=== PATIENT | male | born 1965 | race African-American/Black ===

== ENCOUNTER 2017-01-17 19:13 | Emergency (ER) | payer BC ==
[2017-01-17] MEDS ORDERED: TETRACAINE HCL 150 DROP BTL ONE (19:33)
--- OUTSIDE RECORDS SUMMARY | 2017-01-17 20:13 | XMS REPORT | Continuity of Care Document ---
:1965 Author Organization [facility] ([facility]) Address [address] [place] [address] Phone [phone] Care Team Providers Name Role Phone Provider, No-Primary Care Primary Care Provider Unavailable Source Comments This disclosure is being made pursuant to the Care Everywhere program, applicable federal and state laws, and may not contain all informaitonavailable regarding this patient.[facility] ([facility]) Active Allergies and Adverse Reactions Allergen Noted Date Severity Reactions Comments Penicillins Respiratory increases BP, throat Distress,Angioedema swelling Wheat 10/29/2016 Urticaria (Hives) Current Medications Prescription Sig. Disp. Refills Start Date End Date Status finasteride 5 mg Take 5 mg by mouth Active tablet daily. pyridostigmine 60 mg Take 1.5 tablet by 02/07/2016 Active tablet oral route every 4 hours while awake lisinopril 2.5 mg Take 2.5 mg by Active tablet mouth daily. metFORMIN 500 mg XR Take 1 tablet daily 10/29/2016 Active tablet for 1 week then increase to 2 tablets daily. SUPPLY insulin Use to inject 100 Syringe 5 11/06/2016 Active syringe w/ needle subcutaneously 4 U-100 0.5 mL 31 g x times daily. 01/08" gabapentin 300 mg Take 1 capsule (300 90 capsule 3 11/06/2016 Active capsule mg total) by mouth 3 times daily. insulin detemir Inject 22 Units 10 mL 5 11/06/2016 Active (LEVEMIR) 100 subcutaneously at unit/mL injection bedtime. vial insulin aspart Inject 26 Units 20 mL 5 11/06/2016 Active (NovoLOG) 100 subcutaneously 3 unit/mL injection times daily with vial meals AND 2-10 Units per sliding scale 3 times a day with meals Active Problems Patient Care Coordination Note Dianelys Pereira, , . This agency provides services to this patient. 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 Follow-up Call 11/06/2016 Pharmacy Visit 11/06/2016 Surgery Radiology Aiden Domínguez IR TEMP CATH C, PA-C REMOVAL 11/05/2016 [facility] Pathology [facility] [place], Dx: Myasthenia Encounter Marisel Moore MD gravis (Primary Dx) 11/04/2016 Ophth Exam Ophthalmology - Royal Galeana MD 11/02/2016 [facility] Pathology Deion Escobedo MD Dx: Myasthenia Encounter gravis (Primary Dx) 10/31/2016 [facility] Pathology Deion Escobedo MD Dx: Myasthenia Encounter exacerbation (Primary Dx) 10/30/2016 - [facility] General Care Aline Ugarte, Dx: Myasthenia 11/06/2016 Encounter Inpatient - Adult gravjustina (Primary Dx) Goran Zarate MD Samaniego, Edgar A, MD Kamholz, John, MD Gutmann, Ludwig, MD 10/30/2016 Surgery Radiology Oscar Christensen MD Placement 10/29/2016 - Hospital Internal Medicine - [facility], Dx: Myasthenia 10/30/2016 Encounter Specialty MD Lei gravis (Primary Dx) Antonio Starr MD Spragg, Matthew T, DO Laroia, Sandeep T, MD Social History Tobacco Use Types Packs/Day Years Used Date Never Smoker Smokeless Tobacco: Never Used Alcohol Use Drinks/Week oz/Week Comments No Last Filed Vital Signs Vital Sign Reading Time Taken Blood Pressure 87/44 11/06/2016 7:54 AM CDT Pulse 80 11/06/2016 7:54 AM CDT Temperature 36.7 C (98.1 F) 11/06/2016 7:54 AM CDT Respiratory Rate 18 11/05/2016 7:36 AM CDT Height 1.829 m (6' 0.01") 10/30/2016 4:45 PM EXPRESS CLERK Weight 92.987 kg (205 lb) 10/30/2016 4:45 PM EXPRESS CLERK Body Mass Index 27.8 10/30/2016 4:45 PM EXPRESS CLERK Oxygen Saturation 93% 11/06/2016 7:54 AM CDT Plan of Care Health Maintenance Due Date Last Done Comments Hepatitis B Vaccine (1 of 3 - Primary Series) 1965 Tdap Vaccine 1977 DIABETIC: Cholesterol 1984 Diabetic: Hdl 1984 DIABETIC: Hemoglobin A1C 1984 Diabetic: Ldl 1984 DIABETIC: Microalbumin 1984 DIABETIC: Triglycerides 1984 MMR Vaccine 1984 Td Vaccine 1984 Pneumococcal Vaccine (1 of 1 - PPSV23) 1985 Colonoscopy 09/09/2016 Prostate Cancer Screening 2016 DIABETIC: Foot Exam 11/05/2016 DIABETIC: Retinal Eye Exam 11/05/2016 Influenza Vaccine: Seasonal (Season Ended) 2017 Procedures from Last 3 Months Procedure Name Priority Date/Time Associated Diagnosis Comments PLASMA EXCHANGE, Routine 11/05/2016 12:20 Myasthenia gravis Results for this THERAPEUTIC PM CDT procedure are in the results section. PLASMA EXCHANGE, Routine 11/02/2016 1:43 Myasthenia gravis Results for this THERAPEUTIC PM EXPRESS CLERK procedure are in the results section. PLASMA EXCHANGE, Routine 10/31/2016 3:12 Myasthenia Results for this THERAPEUTIC PM EXPRESS CLERK exacerbation procedure are in the results section. Results from Last 3 Months IR TEMP CATH REMOVAL (11/06/2016 1:33 PM)BLOOD GLUCOSE, BEDSIDE (11/06/2016 11: 45 AM)Only the most recent of33 resultswithin the time period is included. Component Value Range Glucose, Accu-Chek 353(H) 65-99 mg/dL Specimen Blood, capillary PLASMA EXCHANGE, THERAPEUTIC (11/05/2016 12:20 PM) Whit Gutierrez RN 11/05/2016 12:20 PM Therapeutic Plasma Exchange Procedure Note Procedure Date: 11/05/2016 Medications:Medications Given:Heparin Flush and Tums. Education:Procedure explained including clinical indications, course of treatment, and potential side effects. Consent Obtained:Consent obtained on 10-31-2016.Consent verified 11-05-2016. Line Placement Verification: Line Placement Verified By:Whit Wasserman RN. Line Placed: 10-30-2016 Description of Operation/Procedure: Time Out Performed:Yes,2 forms of patient identification verified. Equipment:Optia #1 Fluid Warmer:#7 Anticoagulant:ACD-A Whole blood anticoagulant ratio:1:10 Fluid Balance:100% Time Started:953 Time Stopped:113 Run Time: 95 min. Pre HCT:43% Estimated Blood Volume:5842 ml Estimated Plasma Volume:3330 ml Volume of WB Processed:8715 ml Volume Plasma Removed:3557 ml Type and Volume of Fluids Replaced:Albumin:2000 ml and Normal Saline:1250 ml Plasma Volume(s) Exchanged: 1.1 Volume ACD-A used:871 ml Volume ACD-A to Patient:177 ml Volume of Normal Saline rinse/bolus:165 ml Fluid balance: +16 ml / 100% Critical Materials Lot #s: Kit:Lot #:[id number] Exp: 10/14 Warmer tubing:Lot #:[id number], Exp:12/12 ACD-A:Lot #:[id number], Exp:06/12;Lot #:[id number], Exp: 06/2018 Heparin Flush:Lot #:[id number], Exp:02/10 Normal Saline Flush:Lot #:[id number], Exp:06/13x 2 0.9% Normal Saline 500 ml:Lot #:[id number], Exp:12/11 0.9% Normal Saline 1000 ml:Lot #:[id number], Exp:04/12 5% Albumin 500 ml:Lot #:[id number], Exp:04/13x 4 MicroClave Neutral Connector Cap: Lot #:[id number], Exp: x 2 Faustin:ACD-A=Anticoagulant Citrate Dextrose Formula A Reactions:No. Discharge Instructions:Discharge instructions given to patient at completion of the procedure. Nursing Documentation:Patient arrived to [facility] via wheelchair from [facility] [place] Therapeutic Plasma Exchange Procedure # 3 today.Patient is alert and oriented x 3.Patient is pushed back to therapy area where he makes himself comfortable in bed.Patient given milk, string cheese, and TUMS at 0951 before procedure started per request.Patient has 12 F 15 cm [place] Slim-cath double-lumen hemodialysis catheter to right neck that will be used for procedure today.Dressing to hemodialysis catheter intact, but slightly peeling up at bottom edge with no drainage present; site intact without redness or edema.Waste blood pulled easily from both lumens.Small sample drawn for spun hematocrit of 43%.Red lumen used for draw access for procedure and blue lumen attached to return line for procedure.Procedure initiated at 0954 at a whole blood flow rate (WBFR) of 75 ml/min. without alarms.0955 Dr. Marisel Stockton, Pathology Staff, Dr. Emmanuel Nelson, Pathology Fellow, Dr. Juve Whitman, Pathology Resident, and a medical student here to see patient.1000 increased WBFR to 80 ml/min., patient tolerating procedure well, sleeping intermittently through procedure.1014 increased WBFR to 85 ml/min.Removed plasma appears clear and dark yellow/eng yellow in color.1027 increased WBFR to 90 ml/min., patient tolerating procedure well, denies any numbness or tingling; patient resting with eyes closed intermittently during procedure.1038 increased WBFR to 100 ml/min per request by patient to increase rate of procedure, and patient's blood pressure is maintaining so far through procedure. Patient on phone off and on throughout procedure as well. Patient did not eat string cheese during procedure and only had a little of milk during procedure that was provided at start of procedure per patient request.1104 reinforced dressing with piece of tape across bottom of dressing where it is slightly peeling off and another piece of tape over top of dressing where lines come out of neck.Patient continues to tolerate procedure well, denies any numbness or tingling.Rinseback initiated at 1130, and procedure complete at 1134.Both lumens flushed and Heparin locked and capped per protocol.Patient denied wanting copy of discharge instructions, this nurse told patient to let nurse or staff know on 6JCE if there is any issues with his hemodialysis catheter or anything he believes associated with the procedure.This nurse followed patient as he ambulated to restroom.1144 patient then discharged via wheelchair feeling well with no complaints accompanied by patient escort services member, with a ticket to ride.Report called and given to patient's care nurse on Sigrid VALENCIA.Patient's next planned procedure is this coming November 07.Plasma and apheresis tubing discarded in biohazard container appropriately. Vitals: Patient Vitals for the past 24 hrs: BP Temp Temp src Pulse 11/05/16 1137 136/66 mmHg 36.8 C (98.2 F) Tympanic 87 11/05/16 1133 143/75 mmHg - - 91 11/05/16 1118 130/71 mmHg - - 99 11/05/16 1103 135/68 mmHg - - 82 11/05/16 1048 136/71 mmHg - - 84 11/05/16 1033 143/68 mmHg - - 80 11/05/16 1018 141/73 mmHg - - 79 11/05/16 1003 139/78 mmHg - - 80 11/05/16 0948 137/82 mmHg 36.1 C (97 F) Tympanic 81 Whit Wasserman RN [facility] HEMATOCRIT, POINT OF CARE (11/05/2016 9:54 AM)Only the most recent of2 resultswithin the time period is included. Component Value Range DBC HEMATOCRIT 43.0 40-52 % Specimen Blood, venous PLATELET COUNT (11/05/2016 7:25 AM) Component Value Range Platelet Count 176 150-400 K/MM3 Specimen Whole Blood CREATININE (11/05/2016 7:25 AM)Only the most recent of2 resultswithin the time period is included. Component Value Range Creatinine 0.7Comment: 0.6-1.2 mg/dL Creatinine switched to enzymatic method on 01/02/2011.GFR equation switched to IDMS-traceable MDRD equation on 01/02/2011. Calculated GFR values are not valid in clinical settings where serum creatinine is changing. Calculated GFR >90 >60 mL/min/1.73 m2 Specimen Blood PLASMA EXCHANGE, THERAPEUTIC (11/02/2016 1:43 PM) Ivory Peralta RN 11/02/20161:43 PM Therapeutic Plasma Exchange Procedure Note Procedure Date: 11/02/2016 Medications:Medications Given:Heparin Flush Education:Procedure explained including clinical indications, course of treatment, and potential side effects. Consent Obtained:Consent obtained on 10/31/2016.Consent verified. Description of Operation/Procedure: Time Out Performed:Yes,2 forms of patient identification verified Equipment:Optia #1 Fluid Warmer:#10 Anticoagulant:ACD-A Whole blood anticoagulant ratio:1:10 Fluid Balance:100% Time Started:1130 Time Stopped:1325 Pre HCT:45% Estimated Blood Volume:6503 ml Estimated Plasma Volume:2926 ml Volume of WB Processed:67842 ml Volume Plasma Removed:4446 ml Type and Volume of Fluids Replaced:Albumin:2000 ml and Normal Saline: 1250 ml Volume ACD-A used:1054 ml (309 ml to Pt.) Volume of Normal Saline rinse/bolus:167 ml Fluid balance: +19 ml Critical Materials Lot #s:Kit:Lot #:[id number] Exp:09/13 Warmer tubing:Lot #:[id number], Exp:12/12 ACD-A:Lot #:[id number], Exp:07/13 Heparin Flush:Lot #:[id number], Exp:02/10 Normal Saline Flush:Lot #:[id number], Exp:06/13 0.9% Normal Saline 500 ml:Lot #:[id number], Exp:12/11 0.9% Normal Saline 1000 ml:Lot #:[id number], Exp:04/12 5% Albumin 500 ml:Lot #:[id number], Exp:05/14 Reactions:No Discharge Instructions:Discharge instructions given to patient at completion of the procedure. Nursing Documentation:Pt. To [facility] for TPE #2 via wheelchair with escort feeling well. Pt. Had a double lumen hemodialysis catheter which was used for procedure. Dressing was dry and slightly loose with a small amount of dried drainage beneath. Dressing reinforced with tape. Both lumens of catheter expressed whole blood easily. Red lumen used for draw and blue lumen for return. Pt. Took TUMS and had milk before procedure began. 1130-Procedure began with a wbfr of 85 mls/minute and was increased to 100 mls/minute. Removed plasma was eng yellow in color and clear . Dr. Escobedo and pathology team came to see Pt. 1320-Procedure ended and rinseback completed. Lumens flushed and capped per protocol. Kit disposed of in biohazard waste. Pt. Left via wheelchair with escort feeling fine. He stated that taking the calcium rich food and medicine at the beginning of the procedure helped. He will have another procedure on Saturday. Faustin:ACD-A=Anticoagulant Citrate Dextrose Formula A Patient Vitals for the past 24 hrs: BP Temp Pulse 11/02/16 1325 117/73 mmHg 36.8 C (98.2 F) 95 11/02/16 1320 116/70 mmHg - 98 11/02/16 1305 128/81 mmHg - 97 11/02/16 1250 135/79 mmHg - 91 11/02/16 1235 127/75 mmHg - 93 11/02/16 1220 143/75 mmHg - 89 11/02/16 1205 143/73 mmHg - 88 11/02/16 1151 154/84 mmHg - 89 11/02/16 1135 156/83 mmHg - 87 11/02/16 1121 146/86 mmHg 36.5 C (97.7 F) 97 Ivory Holley RN CBC (COMPLETE BLOOD COUNT) (11/01/2016 7:36 AM) Component Value Range WBC Count 6.5 3.7-10.5 K/MM3 RBC Count 5.32 4.50-6.20 M/MM3 Hemoglobin 15.5 13.2-17.7 g/dL Hematocrit 45 40-52 % MCV (Mean Corpuscular Volume) 84 82-99 FL MCH (Mean Corpuscular Hemoglobin) 29 25-35 PG MCHC (Mean Corpuscular Hemoglobin Concentration) 35 32-36 % Platelet Count 173 150-400 K/MM3 MPV (Mean Platelet Volume) 10.2 9.4-12.3 FL RBC Dist Width-STD 39.0 35.1-43.9 FL RBC Distrib Width 12.8 9.0-14.5 % Nucleated RBC 0 /100 WBC Specimen Whole Blood PLASMA EXCHANGE, THERAPEUTIC (10/31/2016 3:12 PM) Huma Guzman RN 10/31/20163:12 PM Therapeutic Plasma Exchange Procedure Note Procedure Date: 10/31/2016 Medications:Medications Given:Heparin Flush Education:Procedure explained including clinical indications, course of treatment, and potential side effects. Consent Obtained:Consent obtained on 10/31/2017.Consent verified. Description of Operation/Procedure: Time Out Performed:Yes,2 forms of patient identification verified Equipment:Optia #3 Fluid Warmer:#5 Anticoagulant:ACD-A Whole blood anticoagulant ratio:1:10 Fluid Balance:100% Time Started:1005 Time Stopped:1205 Pre HCT:42% Estimated Blood Volume:5842 ml Estimated Plasma Volume:3388 ml Volume of WB Processed:66976 ml Volume Plasma Removed:4599 ml Type and Volume of Fluids Replaced:Albumin:2500 ml and Normal Saline:1000 ml Volume ACD-A used:1083 ml (AC to [id number])AC in remove Bag 735 Volume of Normal Saline rinse/bolus:129 ml Critical Materials Lot #s:Kit:Lot #:[id number]: 09/26/2018 Warmer tubing:Lot #:[id number], Exp:10/2018 ACD-A:Lot #:[id number], Exp:05/2018 Heparin Flush:Lot #:[id number], Exp:01/2018 Normal Saline Flush:Lot #:[id number], Exp:07/25/2019 0.9% Normal Saline 1000 ml:Lot #:[id number], Exp:03/2018 X 2 5% Albumin 500 ml:Lot #:[id number], Exp:04/18/2019 Reactions:Yes, See nursing documentation Discharge Instructions:Discharge instructions given to patient at completion of the procedure. Nursing Documentation:Patient arrived to the [facility] via wheelchair accompanied by Escort Services for PLEX #1.Alert, oriented and pleasant although reports he did not sleep well last night and had had a headache since his line was placed yesterday. Taken to therapy procedure room and made comfortable in therapy bed - warm blankets provided. Confirms allergies to PCN and wheat.Procedure explained and consent signed without any questions.Patient reports having nearly 100 PLEX in [place]. Dressing over Right IJ hemodialysis catheter has scant amount of dried serosanguinous drainage - both lumens express waste blood easily and scant amount obtained for spun hematocrit of 42%. 1005 - Procedure started with draw to red and return to blue - WBFR at 100 mls/min and inlet AC:WB ratio 1:10.Dr. Debra Escobedo, Pathology Staff and Transfusion Medicine Team met with patient. Patient sleeps on and off throughout procedure.Removed plasma is cloudy susie.1135 - Patient awakens and feels a little nauseated.Procedure slowed to 50 mls/min.Requests animal cookies to eat and given milk to drink.Refused Tums first time offered.Dr. Alarcon notified about patient condition.Requests to use commode.Up at side of bed on commode to void.Returns to bed.Dr. Alarcon here to see patient and insists he takes two tums.Tums provided see MAR for details.1205 - Procedure complete and rinse back started - draw line flushed and capped per protocol. Rinse back complete and return line flushed and capped per protocol.Patient states he is feeling a little better and requests to go to restroom.Up to ambulate to rest room.Returns to procedure room and gets into wheelchair and states he feels much better.Taken to bilingual receptionist area to await Escort Services.Patient states he feels very hot like he is having a hot flash.Given cold water to drink - taken back to procedure room and assisted into bed.Dr. Debra Escobedo paged to come to procedure room.After ten minutes patient once again is feeling better and states he is ready to get into wheelchair to go back to his room.Taken by this nurse and Ana Holley RN to 6JCE to his room and assisted into bed.Report given to primary care nurse.Kit and removed plasma disposed of in bio hazard waste. Patient Vitals for the past 24 hrs: BP Temp Temp src Pulse 10/31/16 1230 116/82 mmHg 36 C (96.8 F) Tympanic 60 10/31/16 1215 (!) 139/98 mmHg - - 91 10/31/16 1200 108/56 mmHg - - 74 10/31/16 1145 131/85 mmHg - - 88 10/31/16 1130 118/58 mmHg - - 83 10/31/16 1115 115/65 mmHg - - 84 10/31/16 1100 120/65 mmHg - - 81 10/31/16 1045 157/73 mmHg - - 78 10/31/16 1030 140/70 mmHg - - 77 10/31/16 1015 139/74 mmHg - - 74 10/31/16 1000 138/76 mmHg 36.4 C (97.5 F) Tympanic 77 Faustin:ACD-A=Anticoagulant Citrate Dextrose Formula A Huma Sawin RN IR TEMP CATH PLACEMENT (10/30/2016 1:08 PM) Narrative PROCEDURE: Right internal jugular temporary catheter placement. CLINICAL INDICATIONS:Myasthenia gravis ACCESS:Right neck CONTRAST: 10 ml Isovue 370 ANESTHESIA:1% Local lidocaine MEDS:4 mg Versed IV, 100 mcg Fentanyl IV,, 4 ml of 1000 units/ml Heparin IV PHYSICIANS: Dr. Christensen STOCK BUYER: Dr. Prater PULSES:Intact bilaterally COMPLICATIONS:None immediate BLOOD LOSS:Minimal FLUORO TIME:2.9 min FLUORO DOSE:51 mGy SEDATION START TIME: 10/30/2016 1220 SEDATION STOP TIME: 10/30/2016 1255 PROCEDURE: Informed consent was obtained after a detailed discussion outlining the risks, benefits, and alternatives to the procedure and after all of the patient's questions were answered. The patient was brought to the interventional suite and placed in the supine position. A formal timeout was performed. The right neck was prepped and draped in usual sterile fashion. The right internal jugular vein was identified using ultrasound. Overlying skin was anesthetized using 1% lidocaine. Access was achieved in the right internal jugular vein with a 21-gauge micropuncture needle under ultrasound guidance. A nitinol wire was then inserted through the needle under fluoroscopic guidance.A 5 mm transverse juan diego was placed in the skin.The micropuncture needle was removed and access was secured using a 4 [place] transitional sheath. Subsequently the nitinol wire was removed and a Bentson guidewire was introduced through this sheath and was placed across the right atrium into the IVC. 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 Catheter ports were flushed with saline and primed with 2 ml of 100 units/ml heparin.Catheter was secured to the skin using 2-0 Prolene sutures. Procedure done under fluoroscopic guidance. The patient tolerated the procedure well. There were no complications. Dr. Christensen performed the entire procedure. Impression : 1. Successful placement of a 12 F 15 cm [place] Slim-cath temporary catheter through right internal jugular vein access. Tip of the catheter is located at the junction of the SVC and right atrium. 2. Catheter ports flushed with saline and primed with 2 ml of 100 units/ml heparin. Catheter is ready for use. 3. 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 Procedure Note Kane, Incoming Imaging Results - SatOct 31, 2016 8:14 AM EXPRESS CLERK PROCEDURE: Right internal jugular temporary catheter placement. CLINICAL INDICATIONS: Myasthenia gravis ACCESS: Right neck CONTRAST: 10 ml Isovue 370 ANESTHESIA: 1% Local lidocaine MEDS: 4 mg Versed IV, 100 mcg Fentanyl IV, , 4 ml of 1000 units/ml Heparin IV PHYSICIANS: Dr. Christensen STOCK BUYER: Dr. Prater PULSES: Intact bilaterally COMPLICATIONS: None immediate BLOOD LOSS: Minimal FLUORO TIME: 2.9 min FLUORO DOSE: 51 mGy SEDATION START TIME: 10/30/2016 1220 SEDATION STOP TIME: 10/30/2016 1255 PROCEDURE: Informed consent was obtained after a detailed discussion outlining the risks, benefits, and alternatives to the procedure and after all of the patient's questions were answered. The patient was brought to the interventional suite and placed in the supine position. A formal timeout was performed. The right neck was prepped and draped in usual sterile fashion. The right internal jugular vein was identified using ultrasound. Overlying skin was anesthetized using 1% lidocaine. Access was achieved in the right internal jugular vein with a 21-gauge micropuncture needle under ultrasound guidance. A nitinol wire was then inserted through the needle under fluoroscopic guidance. A 5 mm transverse juan diego was placed in the skin. The micropuncture needle was removed and access was secured using a 4 [place] transitional sheath. Subsequently the nitinol wire was removed and a Bentson guidewire was introduced through this sheath and was placed across the right atrium into the IVC. 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 A 12F 15 cm [place] Slim-cath was then inserted over the Bentson wire. The catheter tip was checked to be in adequate position on fluoroscopy. Catheter ports were flushed with saline and primed with 2 ml of 100 units/ml heparin. Catheter was secured to the skin using 2-0 Prolene sutures. Procedure done under fluoroscopic guidance. The patient tolerated the procedure well. There were no complications. Dr. Christensen performed the entire procedure. Impression : 1. Successful placement of a 12 F 15 cm [place] Slim-cath temporary catheter through right internal jugular vein access. Tip of the catheter is located at the junction of the SVC and right atrium. 2. Catheter ports flushed with saline and primed with 2 ml of 100 units/ml heparin. Catheter is ready for use. 3. 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 PTT (PARTIAL THROMBOPLASTIN TIME) (10/30/2016 7:47 AM) Component Value Range PTT 25 22-31 secs Specimen Blood PT/INR (PROTHROMBIN TIME/INR) VENOUS (10/30/2016 7:47 AM) Component Value Range PT (Prothrombin Time) 11 9-12 secs INR 1.0 <4.0 Specimen Blood MICROSCOPIC URINALYSIS (10/29/2016 9:44 PM) Component Value Range White Blood Cells, Urine <1 0-5 /HPF Red Blood Cells, Urine <1 0-2 /HPF Specimen Urine URINALYSIS WITH REFLEX CULTURE (10/29/2016 9:44 PM) Component Value Range Color, Urine Yellow Straw, Pale Yellow, Yellow, Clear, None Clarity, Urine Clear Clear pH, Urine 7.0 <9.0 Spec Gaylord, Urine 1.025 1.000-1.030 Glucose, Urine 3+(A) Negative Blood, Urine Negative Negative Ketones, Urine 1+(A) Negative Protein, Urine Negative Negative Urobilinogen, Urine 2+(A) Normal Bilirubin, Urine Negative Negative Leukocyte Esterase, Urine Negative Negative Nitrite, Urine Negative Negative Specimen Urine URINALYSIS WITH REFLEXED CULTURE AND MICROSCOPIC EXAM (10/29/2016 9:44 PM) Specimen Culture - Urine, Midstream clean catch Narrative The following orders were created for panel order URINALYSIS WITH REFLEXED CULTURE AND MICROSCOPIC EXAM. Procedure Abnormality Status --------- ------ URINALYSIS WITH REFLEX C...[[id number]]AbnormalFinal result MICROSCOPIC URINALYSIS[[id number]] Normal Final result URINE CULTURE, REFLEXED[[id number]] Please view results for these tests on the individual orders. CHEST- PA& LATERAL (10/29/2016 9:00 PM) Impressions Impression: Stable exam. No acute findings. Narrative Procedure: CHEST- PA & LATERAL Clinical Indication: Myasthenia gravis, shortness of breath Technique: PA and lateral chest radiograph Comparison: 12/01/2015, 09/01/2011, 06/03/2011 Findings: The cardiomediastinal silhouette and pulmonary vasculature are unremarkable. Faint opacity in the right paracardiac region is related to overlapping vascular shadows and was seen on prior radiographs. No suspicious infiltrate, lobar consolidation or collapse. Postsurgical changes in the mediastinum and sternotomy sutures appear unchanged. No pleural effusion or pneumothorax. Redemonstration of partly visualized fusion hardware in the lowermost cervical spine/upper thoracic spine and cholecystectomy clips in the right upper abdomen. The exam is otherwise stable. Procedure Note Kane, Incoming Imaging Results - SatOct 29, 2016 10:25 PM EXPRESS CLERK Procedure: CHEST- PA & LATERAL Clinical Indication: Myasthenia gravis, shortness of breath Technique: PA and lateral chest radiograph Comparison: 12/01/2015, 09/01/2011, 06/03/2011 Findings: The cardiomediastinal silhouette and pulmonary vasculature are unremarkable. Faint opacity in the right paracardiac region is related to overlapping vascular shadows and was seen on prior radiographs. No suspicious infiltrate, lobar consolidation or collapse. Postsurgical changes in the mediastinum and sternotomy sutures appear unchanged. No pleural effusion or pneumothorax. Redemonstration of partly visualized fusion hardware in the lowermost cervical spine/upper thoracic spine and cholecystectomy clips in the right upper abdomen. The exam is otherwise stable. IMPRESSION Impression: Stable exam. No acute findings. DIFFERENTIAL (10/29/2016 8:54 PM) Component Value Range % Neutrophils-Auto Diff 59.9 % Neutrophils-Auto Diff 2820 6353-3521 /MM3 % Lymphocytes-Auto Diff 29.9 % Lymphocytes-Auto Diff 0964 446-2853 /MM3 % Monocytes-Auto Diff 8.1 % Monocytes-Auto Diff 380 130-860 /MM3 % Eosinophils-Auto Diff 1.5 % Eosinophils-Auto Diff 70 40-390 /MM3 % Basophils 0.4 % Basophils-Auto Diff 20 10-136 /MM3 % Immature Granulocytes-Auto Diff 0.2 % Immature Granulocytes-Auto Diff 10 /MM3 Specimen Whole Blood CBC (COMPLETE BLOOD COUNT) (10/29/2016 8:54 PM) Component Value Range WBC Count 4.7 3.7-10.5 K/MM3 RBC Count 4.64 4.50-6.20 M/MM3 Hemoglobin 13.8 13.2-17.7 g/dL Hematocrit 39(L) 40-52 % MCV (Mean Corpuscular Volume) 84 82-99 FL MCH (Mean Corpuscular Hemoglobin) 30 25-35 PG MCHC (Mean Corpuscular Hemoglobin Concentration) 35 32-36 % Platelet Count 182 150-400 K/MM3 MPV (Mean Platelet Volume) 10.6 9.4-12.3 FL RBC Dist Width-STD 39.2 35.1-43.9 FL RBC Distrib Width 12.9 9.0-14.5 % Nucleated RBC 0 /100 WBC Specimen Whole Blood POTASSIUM ([facility]) (10/29/2016 8:54 PM) Component Value Range Potassium, Whole Blood 4.3Comment: 3.5-5.0 mEq/L Sample run on whole blood.Hemolysis is not measured. Specimen Whole Blood B-HYDROXYBUTYRATE (10/29/2016 8:54 PM) Component Value Range Beta-Hydroxybutyrate 0.3 0.0-0.3 mEq/L Specimen Blood LACTIC ACID, WHOLE BLOOD ([facility]) (10/29/2016 8:54 PM) Component Value Range Lactic Acid, Whole Blood 2.0Comment: 0.5-2.0 mEq/L Glycolate, the principle toxic metabolite of ethylene glycol, can cause artifactual elevation of measured lactate. Specimen Whole Blood VENOUS BLOOD GAS ([facility]) (10/29/2016 8:54 PM) Component Value Range pH, Venous 7.44(H) 7.33-7.43 pCO2, Venous 43 37-50 torr pO2, Venous 52(H) 37-47 torr Base Excess, Venous 6(H) -2-2 mEq/L Bicarbonate, Venous 30(H) 22-26 mEq/L Total CO2, Venous 31 24-32 mEq/L Temperature, Venous 37.0 Degrees C Specimen Whole Blood TROPONIN T (10/29/2016 8:54 PM) Component Value Range Troponin-T <0.03 <=0.10 ng/mL Specimen Blood COMPREHENSIVE METABOLIC PANEL (CMP) (10/29/2016 8:54 PM) Component Value Range Sodium 137 135-145 mEq/L Chloride 98 95-107 mEq/L CO2 26 22-29 mEq/L Anion Gap 13 8-18 mEq/L BUN 10 10-20 mg/dL Creatinine 0.7Comment: 0.6-1.2 mg/dL Creatinine switched to enzymatic method on 01/02/2011.GFR equation switched to IDMS-traceable MDRD equation on 01/02/2011. Calculated GFR values are not valid in clinical settings where serum creatinine is changing. Glucose 238(H)Comment: 65-99 mg/dL The Expert Committee on the Diagnosis and Classification of Diabetes has defined impaired fasting glucose as greater than or equal to 100 mg/dL but less than 126 mg/dL.(Diabetes Care 28 (Suppl 1)S41,2005) Calcium 8.9 8.5-10.5 mg/dL Total Protein 6.9 6.0-8.0 g/dL Albumin 3.8 3.4-4.8 g/dL ALP 111 40-129 U/L Bilirubin Total 0.5 <=1.2 mg/dL Potassium Hemolyzed(A)Comment: mEq/L For inpatient phlebotomy redraws, please contact pager #[phone] between the hours of 05:00 to 13:00. AST Hemolyzed(A)Comment: U/L For inpatient phlebotomy redraws, please contact pager #[phone] between the hours of 05:00 to 13:00. ALT Hemolyzed(A)Comment: U/L For inpatient phlebotomy redraws, please contact pager #[phone] between the hours of 05:00 to 13:00. Calculated GFR >90 >60 mL/min/1.73 m2 Specimen Blood CBC WITH DIFFERENTIAL (10/29/2016 8:54 PM) Specimen Whole Blood Narrative The following orders were created for panel order CBC WITH DIFFERENTIAL. Procedure Abnormality Status --------- ------ CBC (COMPLETE BLOOD COUNT)[[id number]] AbnormalFinal result DIFFERENTIAL[[id number]] Final result Please view results for these tests on the individual orders. ECG - EKG 12 LEAD (10/29/2016 8:45 PM) Component Value Range ECG SEVERITY - NORMAL ECG - VENT. RATE 82 bpm RR 732 ms P-R INTERVAL 168 ms QRSD INTERVAL 94 ms QT INTERVAL 392 ms QTC INTERVAL 458 ms P AXIS 61 degrees QRS AXIS 41 degrees T WAVE AXIS 46 degrees REPORT SINUS RHYTHM [Remains] NO SIGNIFICANT CHANGE Interpreting Physician: Hunter Casillas MD
[2017-01-17 20:53] VITALS: BP 145/94
--- NOTE | 2017-01-17 21:03 | ERNOTE ---
ENT HPI Presenting Symptoms: other - right eye drooping Time Seen by Provider: 01/17/17 20:06 Source: patient Exam Limitations: no limitations - Immun/Allergies/Home Medications Immunizations: IMMUNIZATION HX Immunizations Up to Date Yes History of Influenza Vaccine No Hx Pneumococcal Vaccination No Allergies/Adverse Reactions: Allergies Allergy/AdvReac Type Severity Reaction Status Date / Time Penicillins Allergy Verified 06/03/16 19:04 Home Medications: HOME MEDICATIONS Insul NPH Hu Rec/Ins Rg Hu Rec [Novolin 70/30 100U/ml] 25 units SQ DAILY [Last Taken 11/30/15] Insul NPH Hu Rec/Ins Rg Hu Rec [Novolin 70/30 100U/ml] 28 units SQ DAILY [Last Taken 11/30/15] Pyridostigmine [place] [Mestinon] 90 mg PO TID 11/30/15 [Last Taken 11/30/15] Insulin Lispro [Humalog] 100 unit SQ AC #1 insuln.pen 06/03/16 [Last Taken Unknown] - History of Present Illness Narrative: Pt states he has had increasing weakness of his right eyelid. He has had some drainage from his eye but not severe. This morning his left eye was mattered when he woke up Severity: Present: moderate ENT Location: Present: eye (R) Prearrival Treatment: Present: over the counter meds - for cold symptoms Associated Symptoms - ENT: Reports: nasal congestion/drainage - mild Review of Systems - Review of Systems Constitutional: Present: recent illness - mild. Absent: fever, chills, fatigue EYE: Present: see HPI, eye discharge - minimal. Absent: eye pain, blurred vision, double vision ENT: Present: nose congestion. Absent: sore throat Respiratory: Absent: shortness of breath, cough Cardiology: Absent: chest pain, palpitations Gastrointestinal/Abdominal: Absent: nausea, abdominal pain Genitourinary: Present: no symptoms reported Musculoskeletal: Absent: muscle pain, muscle stiffness, other - denies any muscular symptoms associated with his myesthenia gravis. Skin: Absent: rash Neurological: Present: headache - upon awakening this past week. Absent: numbness, tingling Endocrine: Present: no symptoms reported Hematologic/Lymphatic: Present: no symptoms reported Psych: Present: no symptoms reported - Patient's Past Medical History Patient History - Medical: Diabetes Type 2 Insulin Dependent, Other - Myesthenia gravis Patient History - Cardiac/Respiratory: No pertinent hx Patient History - Cancer: Lung Patient History - Surgical Procedures: Appendectomy, Back Surgery, T & A, Other Patient History - Other: None - Family History Father Family History - Medical: janeen Family History - Medical: Diabetes Type 2 - Social History Living Situations: home Abuse History: No History of abuse Psych History: No pertinent hx Smoking Status: Never smoker Alcohol Use: none Drug Use: none - Immunizations Immunizations Up to Date: Yes Hx Pneumococcal Vaccination: No History of Influenza Vaccine: No Physical Exam - Physical Exam General Appearance: Present: wd/wn, alert, no apparent distress Eye Exam: PERRL: bilateral, EOMI: bilateral, Sclera injection: bilateral - minimal bilateral, no inflamation, no drainage or crusting of the lashed, Other : right - Drooping of right lid to open only 1-2 mm except with maximal effort he get lid half way open Ears, Nose, Throat: Present: normal ENT inspection. Absent: nasal congestion Neck: Present: normal inspection, nontender, supple Respiratory: Present: no respiratory distress, no accessory muscle use Extremity Exam: Present: normal inspection, normal range of motion Neurological Exam: Present: alert, oriented, normal mood/affect, no motor/ sensory deficits - Has full strength of all extremities. Skin Exam: Present: normal color, warm/dry ED Progress - Vital Signs Vital Signs: Vital Signs 01/17/17 19:19 Temperature 36.8 C Pulse Rate 104 H Respiratory 18 Rate Blood Pressure 130/82 O2 Sat by Pulse 99 Oximetry - CT/Ultrasound CT/Ultrasound Narrative: CT head: no acute intracranial process - Progress/Reassessment Chief Complaint: Eye Injury/Trauma Progress Note-Subjective: 01/17/17 21:34 Called for neurology consultation at [facility]. Spoke with Dr. Gusman. He feels that it is probably not related to his myasthenia gravis but that other dx would require MRI or other testing that we do not have here. He stated that as long as the patient isn't having respiratory difficulty suggesting a full MG exacerbation then I can send him home and they will call him tomorrow to begin further workup on his ptosis. 01/17/17 21:[address] with patient and that I talked to the [facility], he was upset that I didn't find an alternate diagnosis. I apologized that there was no other apparent diagnosis and I did get the ball rolling with the [place]. He was more appreciative Departure Clinical Impression: Ptosis Qualifiers: Laterality: right Qualified Code(s): H02.401 - Unspecified ptosis of right eyelid - Departure Disposition: Home Follow Up Needed Condition: Good Additional Instructions: [facility] will call you tomorrow to begin further workup for your eye. Return to ER as needed.
== END 2017-01-17 21:51 | disposition home or self-care (01) ==
LOC: ER 19:13
DX: H02.401 Unspecified ptosis of right eyelid (principal); E11.9 Type 2 diabetes mellitus without complications; Z79.4 Long term (current) use of insulin; Z85.118 Personal history of other malignant neoplasm of bronchus and lung; G70.9 Myoneural disorder, unspecified

== ENCOUNTER 2017-01-20 12:46 | Emergency (ER) | payer BC ==
[2017-01-20] MEDS ORDERED: HYDROCORTISONE SOD SUCCINATE 50 MG/ML VIAL IV ONE (13:01)
[2017-01-20] MEDS ORDERED: HYDROCORTISONE SOD SUCCINATE 50 MG/ML VIAL ONE (13:04)
--- OUTSIDE RECORDS SUMMARY | 2017-01-20 13:11 | XMS REPORT | Continuity of Care Document ---
:1965 Author Organization [facility] ([facility]) Address [address] [place] [address] Phone [phone] Care Team Providers Name Role Phone Provider, No-Primary Care Primary Care Provider Unavailable Source Comments This disclosure is being made pursuant to the Care Everywhere program, applicable federal and state laws, and may not contain all informaitonavailable regarding this patient.[facility] ([facility]) Active Allergies and Adverse Reactions Allergen [...] Recent Encounters Date Type Specialty Providers Description 01/17/2017 Telephone Neurology Naseem, Chief Comp: MD Andrés Consultation 11/08/2016 Nurse Triage General Care Stacey Lombardi Chief Comp: IP 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, 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 Follow-up Call 11/06/2016 Pharmacy Visit 11/06/2016 Surgery Radiology Aiden Domínguez IR TEMJordan CATH C, PA-C REMOVAL 11/05/2016 [facility] Pathology Mahin, Dx: Myasthenia Encounter Marisel Moore MD gravjustina (Primary Dx) 11/04/2016 Ophth Exam Ophthalmology - [facility] MD Teresa 11/02/2016 [facility] Pathology Deion Escobedo MD Dx: Myasthenia Encounter gravis (Primary Dx) 10/31/2016 Hospital Pathology Deion Escobedo MD Dx: Myasthenia Encounter exacerbation (Primary Dx) 10/30/2016 - [facility] General Care Aline Ugarte, Dx: Myasthenia 11/06/2016 Encounter Inpatient - Adult gravjustina (Primary Dx) Goran Zarate MD Samaniego, Edgar A, MD Kamholz, John, MD Gutmann, Ludwig, MD 10/30/2016 Surgery Radiology Oscar Christensen MD Placement 10/29/2016 - Hospital Internal Medicine - [facility], Dx: Myasthenia 10/30/2016 Encounter Specialty MD Lei gravis (Primary Dx) Atnonio Starr MD Spragg, Matthew T, Oscar Isidro MD Social History Tobacco Use Types Packs/Day [...] 1.829 m (6' 0.01") 10/30/2016 4:45 PM ASSET PROTECTION OFFICER Weight 92.987 kg (205 lb) 10/30/2016 4:45 PM ASSET PROTECTION OFFICER Body Mass Index 27.8 10/30/2016 4:45 PM ASSET PROTECTION OFFICER Oxygen Saturation 93% 11/06/2016 7:54 AM CDT [...] Myasthenia gravis Results for this THERAPEUTIC PM ASSET PROTECTION OFFICER procedure are in the results section. PLASMA EXCHANGE, Routine 10/31/2016 3:12 Myasthenia Results for this THERAPEUTIC PM ASSET PROTECTION OFFICER exacerbation procedure are in the results section. Results from Last 3 Months IR TEMP CATH REMOVAL (11/06/2016 1:33 PM)BLOOD GLUCOSE, BEDSIDE (11/06/2016 11: 45 AM)Only the most recent of33 resultswithin the time period is included. Component Value Range Glucose, Accu-Chek 353(H) 65-99 mg/dL Specimen Blood, capillary PLASMA EXCHANGE, THERAPEUTIC (11/05/2016 12:20 PM) Whit Gutierrez, RN 11/05/2016 12:20 PM Therapeutic Plasma Exchange [...] Whole blood anticoagulant ratio:1:10 Fluid Balance:100% Time Started:09 Time Stopped:1133 Run Time: 95 min. Pre HCT:43% Estimated [...] / 100% Critical Materials Lot #s: Kit:Lot #:[id number] Exp: 10/14 Warmer tubing:Lot #:[id number], Exp:12/12 ACD-A:Lot #:[id number], Exp:06/12;Lot #:[id number], Exp: 06/2018 Heparin Flush:Lot #:[id number], Exp:02/10 Normal Saline Flush:Lot #:[id number], Exp:06/13x 2 0.9% Normal Saline 500 ml:Lot #:[id number], Exp:12/11 0.9% Normal Saline 1000 ml:Lot #:[id number], Exp:04/12 5% Albumin 500 ml:Lot #:[id number], Exp:04/13x 4 MicroClave Neutral Connector Cap: Lot #:[id number], Exp: x 2 Faustin:ACD-A=Anticoagulant Citrate Dextrose Formula A Reactions:No. Discharge Instructions:Discharge instructions given to patient at completion of the procedure. Nursing Documentation:Patient arrived to [facility] via wheelchair from [id number] for Therapeutic Plasma Exchange Procedure # 3 today.Patient is alert and oriented x 3.Patient is pushed back to therapy area where he makes himself comfortable in bed.Patient given milk, string cheese, and TUMS at 0951 before procedure started per request.Patient has 12 F 15 cm Tipton Slim-cath double-lumen hemodialysis catheter to right neck [...] nurse followed patient as he ambulated to [facility].1144 patient then discharged via wheelchair feeling well with no complaints accompanied by patient escort services member, with a ticket to ride.Report called and given to patient's care nurse on ERIK Sigrid.Patient's next planned procedure is this coming November [...] 36.1 C (97 F) Tympanic 81 Whit Wasserman, PATTIE [facility] HEMATOCRIT, POINT OF CARE (11/05/2016 9:54 AM)Only [...] Estimated Plasma Volume:2926 ml Volume of WB Processed:23197 ml Volume Plasma Removed:4446 ml Type and Volume of Fluids Replaced:Albumin:2000 ml and Normal Saline: 1250 ml Volume ACD-A used:1054 ml (309 ml to Pt.) Volume of Normal Saline rinse/bolus:167 ml Fluid balance: +19 ml Critical Materials Lot #s:Kit:Lot #:[id number] Exp:09/13 Warmer tubing:Lot #:[id number], Exp:12/12 ACD-A:Lot #:[id number], Exp:07/13 Heparin Flush:Lot #:[id number], Exp:02/10 Normal Saline Flush:Lot #:[id number], Exp:06/13 0.9% Normal Saline 500 ml:Lot #:[id number], Exp:12/11 0.9% Normal Saline 1000 ml:Lot #:[id number], Exp:04/12 5% Albumin 500 ml:Lot #:[id number], Exp:05/14 Reactions:No Discharge Instructions:Discharge instructions given to patient at completion of the procedure. Nursing Documentation:Pt. To [facility] for TPE #2 via wheelchair with [...] Estimated Plasma Volume:3388 ml Volume of WB Processed:36118 ml Volume Plasma Removed:4599 ml Type and Volume of Fluids Replaced:Albumin:2500 ml and Normal Saline:1000 ml Volume ACD-A used:1083 ml (AC to [id number])AC in remove Bag 735 Volume of Normal Saline rinse/bolus:129 ml Critical Materials Lot #s:Kit:Lot #:[id number]: 09/26/2018 Warmer tubing:Lot #:[id number], Exp:10/2018 ACD-A:Lot #:[id number], Exp:05/2018 Heparin Flush:Lot #:[id number], Exp:01/2018 Normal Saline Flush:Lot #:[id number], Exp:07/25/2019 0.9% Normal Saline 1000 ml:Lot #:[id number], Exp:03/2018 X 2 5% Albumin 500 ml:Lot #:[id number], Exp:04/18/2019 Reactions:Yes, See nursing documentation Discharge Instructions:Discharge instructions given to patient at completion of the procedure. Nursing Documentation:Patient arrived to the [facility] via wheelchair accompanied by Escort Services for [...] questions.Patient reports having nearly 100 PLEX in [place]. Dressing over Right IJ hemodialysis catheter has [...] and states he feels much better.Taken to sewer contractor area to await Escort Services.Patient states he [...] 77 Faustin:ACD-A=Anticoagulant Citrate Dextrose Formula A Huma Swain RN IR TEMP CATH PLACEMENT (10/30/2016 1:08 PM) Narrative PROCEDURE: Right internal jugular temporary catheter placement. CLINICAL INDICATIONS:Myasthenia gravis ACCESS:Right neck CONTRAST: 10 ml Isovue 370 ANESTHESIA:1% Local lidocaine MEDS:4 mg Versed IV, 100 mcg Fentanyl IV,, 4 ml of 1000 units/ml Heparin IV PHYSICIANS: Dr. Christensen CITRIX LEAD: Dr. Prater PULSES:Intact bilaterally COMPLICATIONS:None immediate BLOOD [...] and access was secured using a 4 Singaporean transitional sheath. Subsequently the nitinol wire was removed and a Bentson guidewire was introduced through this sheath and was placed across the right atrium into the IVC. 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 CLINICAL INDICATIONS: Myasthenia gravis ACCESS: Right neck CONTRAST: 10 ml Isovue 370 ANESTHESIA: 1% Local lidocaine MEDS: 4 mg Versed IV, 100 mcg Fentanyl IV, , 4 ml of 1000 units/ml Heparin IV PHYSICIANS: Dr. Christensen CITRIX LEAD: Dr. Prater PULSES: Intact bilaterally COMPLICATIONS: None [...] and access was secured using a 4 Singaporean transitional sheath. Subsequently the nitinol wire was removed and a Bentson guidewire was introduced through this sheath and was placed across the right atrium into the IVC. 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 A 12F 15 cm Tipton Slim-cath was then inserted over the Bentson [...] placement of a 12 F 15 cm Tipton Slim-cath temporary catheter through right internal jugular [...] Clear Clear pH, Urine 7.0 <9.0 Spec S[place]x, Urine 1.025 1.000-1.030 Glucose, Urine 3+(A) Negative [...] Abnormality Status --------- ------ URINALYSIS WITH REFLEX C...[[id number]]AbnormalFinal result MICROSCOPIC URINALYSIS[[id number]] Normal Final result URINE CULTURE, REFLEXED[[id number]] Please view results for these tests on [...] Results - SatOct 29, 2016 10:25 PM ASSET PROTECTION OFFICER Procedure: CHEST- PA & LATERAL Clinical Indication: [...] Neutrophils-Auto Diff 59.9 % Neutrophils-Auto Diff 2820 6462-3331 /MM3 % Lymphocytes-Auto Diff 29.9 % Lymphocytes-Auto Diff 1254 010-8386 /MM3 % Monocytes-Auto Diff 8.1 % Monocytes-Auto [...] For inpatient phlebotomy redraws, please contact pager #[phone] between the hours of 05:00 to 13:00. Calculated GFR >90 >60 mL/min/1.73 m2 Specimen Blood CBC WITH DIFFERENTIAL (10/29/2016 8:54 PM) Specimen Whole Blood Narrative The following orders were created for panel order CBC WITH DIFFERENTIAL. Procedure Abnormality Status --------- ------ CBC (COMPLETE BLOOD COUNT)[[id number]] AbnormalFinal result DIFFERENTIAL[[id number]] Final result Please view results for these [...]
--- NOTE | 2017-01-20 13:23 | ERNOTE ---
[facility] Date of Service: 01/20/17 Presenting Symptoms: other - eye droop Time Seen by Provider: 01/20/17 12:57 Source: patient Exam Limitations: no limitations - Immun/Allergies/Home Medications Immunizations: IMMUNIZATION HX Immunizations Up to Date Yes History of Influenza Vaccine No Hx Pneumococcal Vaccination No Allergies/Adverse Reactions: Allergies Allergy/AdvReac Type Severity Reaction Status Date / Time Penicillins Allergy Verified 06/03/16 19:04 Home Medications: HOME MEDICATIONS Insul NPH Hu Rec/Ins Rg Hu Rec [Novolin 70/30 100U/ml] 25 units SQ DAILY [Last Taken 11/30/15] Insul NPH Hu Rec/Ins Rg Hu Rec [Novolin 70/30 100U/ml] 28 units SQ DAILY [Last Taken 11/30/15] Pyridostigmine [place] [Mestinon] 90 mg PO TID 11/30/15 [Last Taken 11/30/15] Insulin Lispro [Humalog] 100 unit SQ AC #1 insuln.pen 06/03/16 [Last Taken Unknown] Pyridostigmine [place] [Mestinon] 120 mg PO Q4H #100 tablet 01/20/17 [Last Taken Unknown] - History of Present Illness Narrative: Pt. comes in with c/o R eye drooping for a week. Pt. was seen here five days ago for the same symptom and diagnosed with myastenia gravis exacerbation and discharged to have further testing and treatment at [facility]. Pt. then went immediately to [place] and was treated for conjunctivitis but symptoms have not improved. Pt. has an appointment next week but pt. states that it has become more and more difficult to open his eye. Review of Systems - Review of Systems Constitutional: Present: no symptoms reported. Absent: recent illness, fever, chills, weakness, fatigue EYE: Present: other - R eye droop. Absent: eye pain, eye discharge ENT: Present: no symptoms reported Respiratory: Present: no symptoms reported. Absent: shortness of breath, cough , orthopnea, wheezing Cardiology: Present: no symptoms reported. Absent: chest pain, palpitations, edema Gastrointestinal/Abdominal: Present: no symptoms reported. Absent: nausea, vomiting, diarrhea Genitourinary: Present: no symptoms reported Musculoskeletal: Present: no symptoms reported. Absent: back pain, joint pain Skin: Present: no symptoms reported Neurological: Present: no symptoms reported. Absent: headache, dizziness/light- headedness, numbness, tingling All Other Systems: All systems neg except as marked - Patient's Past Medical History Patient History - Medical: Diabetes Type 2 Insulin Dependent Patient History - Cardiac/Respiratory: No pertinent hx Patient History - Cancer: Lung Patient History - Surgical Procedures: Appendectomy, Back Surgery, T & A, Other Patient History - Other: None - Family History Father Family History - Medical: mothretq Family History - Medical: Diabetes Type 2 - Social History Living Situations: home Abuse History: No History of abuse Psych History: No pertinent hx Smoking Status: Never smoker Alcohol Use: none Drug Use: none - Immunizations Immunizations Up to Date: Yes Hx Pneumococcal Vaccination: No History of Influenza Vaccine: No Physical Exam - Physical Exam General Appearance: Present: wd/wn, alert, no apparent distress Eye Exam: PERRL: bilateral, EOMI: bilateral, Other: right - eyelid droop Ears, Nose, Throat: Present: normal ENT inspection Neck: Present: normal inspection, nontender. Absent: lymphadenopathy (R), lymphadenopathy (L) Respiratory: Present: no respiratory distress, normal breath sounds, no accessory muscle use, chest nontender, lungs clear Cardiovascular/Chest: Present: regular rate, rhythm, no murmur, normal peripheral pulses Gastrointestinal/Abdominal: Present: normal bowel sounds, nontender, nondistended, soft, no organomegaly Back Exam: Present: normal inspection, normal range of motion, no CVA tenderness , no vertebral tenderness Extremity Exam: Present: normal inspection, non-tender, normal range of motion, no edema Neurological Exam: Present: alert, oriented, normal mood/affect, snuff drier II-XII nml as tested, normal cerebellar test, facial droop - R eye only not nasal labia fold or mouth Skin Exam: Present: normal color, warm/dry. Absent: pallor, skin rash ED Progress - Date and Time Seen: Date and Time: 01/20/17 14:[address] Hunt at [facility] and we will increase pt. mestinon to 100mg q4hr and have him follow up with [facility]. for further testing and treatment. - Results and Orders Patient's Lab Results:: I have reviewed the patient's lab results. - Vital Signs Patient's Vital Signs:: I have reviewed the patient's vital signs. 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 mellitus Qualifiers: Diabetes mellitus type: type 2 Diabetes mellitus complication status: with hyperglycemia Diabetes mellitus terminal gauger insulin use: with terminal gauger use Qualified Code(s): E11.65 - Type 2 diabetes mellitus with hyperglycemia; Z79.4 - residential (current) use of insulin Ptosis Qualifiers: Laterality: right Qualified Code(s): H02.401 - Unspecified ptosis of right eyelid - Departure Disposition: Home self-care Condition: Good Instructions: Myasthenia Gravis, Type 2 Diabetes Mellitus, Adult, [id number] Additional Instructions: Please follow up with [facility] neurology clinic for further treatment. They will contact you. Please increase dosage of mestinon to 100mg every 4 hours as needed. Prescriptions: Pyridostigmine [place] [Mestinon] 120 mg PO Q4H #100 tablet
[2017-01-20 13:35] LABS: Hematocrit 39.6 % (42.0-52.0); Hemoglobin 13.4 gm/dL (13.5-18.0); Mean Cell Volume 86.7 fl (78-100); Mean Corpuscular Hemoglobin 29.3 pg (27-31); Mean Corpuscular Hgb Conc 33.8 g/dl (32-36); Mean Platelet Volume 10.3 fl (6.0-9.5); Neutrophil # 2.7 K/mm3 (1.3-6.0); Neutrophil % 59.6 % (42-75.0); Platelet Count 214 K/mm3 (150-450); Red Blood Count 4.57 M/mm3 (4.7-6.0); Red Cell Distribution Width 12.7 % (11.5-14.0); White Blood Count 4.6 K/mm3 (4.0-10.5)
[2017-01-20 13:47] LABS: ALT 38 U/L (19-67); AST 22 U/L (0-48); Albumin * 3.7 gm/dl (3.4-5.0); Alkaline Phosphatase * 138 U/L (50-170); Bilirubin, Total 0.8 mg/dL (0.0-1.1); Blood Urea Nitrogen 12 mg/dL (6-23); Ca. Corrected For Albumin 8.7 mg/dL (8.4-10.2); Calcium * 8.8 mg/dL (7.9-10.9); Carbon Dioxide 26.9 mmol/L (24-32.6); Chloride 97 mmol/L (97-106); Glucose * 497 mg/dL (70-110); Potassium 3.9 mmol/L (3.4-4.6); Sodium 134 mmol/L (132-142); Total Protein 7.2 gm/dL (6.2-8.2)
[2017-01-20 13:48] LABS: Urine Bilirubin Negative (NEGATIVE); Urine Blood Negative /ul (NEGATIVE); Urine Ketone Negative (NEGATIVE); Urine Nitrite Negative (NEGATIVE); Urine Protein Negative (NEGATIVE); Urine Specific Gravity <=1.005 SP.GR. (1.005-1.030); Urine Urobilinogen Normal (NORMAL); Urine pH 5.5 pH (5.0-7.0)
[2017-01-20] MEDS ORDERED: INSULIN LISPRO 100 UNITS/ML VIAL SC ONE (13:54)
[2017-01-20] MEDS ORDERED: INSULIN LISPRO 100 UNITS/ML VIAL ONE (13:57)
[2017-01-20 14:00] LABS: Urine Appearance Clear; Urine Bacteria None Seen; Urine Color Pale Yellow; Urine RBC TRACE /hpf (0-5); Urine WBC None Seen /hpf (0-5)
[2017-01-20 14:06] LABS: Cocaine Ur Negative (NEGATIVE); Urine Barbiturate Negative (NEGATIVE); Urine Benzodiazepines Negative (NEGATIVE); Urine Opiates Negative (NEGATIVE); Urine PCP Negative (NEGATIVE); Urine THC Negative (NEGATIVE)
[2017-01-20 15:03] VITALS: BP 138/91
== END 2017-01-20 14:50 | disposition home or self-care (01) ==
LOC: ER 12:46
DX: H02.401 Unspecified ptosis of right eyelid (principal); E11.65 Type 2 diabetes mellitus with hyperglycemia; E11.44 Type 2 diabetes mellitus with diabetic amyotrophy; Z79.4 Long term (current) use of insulin; Z85.118 Personal history of other malignant neoplasm of bronchus and lung